=== PATIENT | male | born 1945 | race American Indian/Alaskan Native ===

== ENCOUNTER 2017-06-05 14:08 | Outpatient (CLI) | payer BC ==
--- NOTE | 2017-06-05 16:29 | RAD ---
PA AND LATERAL CHEST: History: Dyspnea. FINDINGS: The heart size is normal. The aorta is tortuous. The lungs are well expanded without focal areas of c onsolidation, pneumothoraxes, or pleural effusions. There are degenerative changes in the spine. IMPRESSION: No radiographic evidence of acute cardiopulmonary process. POS: [facility]
== END 2017-06-05 14:09 | disposition home or self-care (01) ==
LOC: RAD 14:08
PROVIDERS: ATTEND Internal Medicine Pulmonary Disease
DX: R06.02 Shortness of breath (principal)
CPT/HCPCS: 71046

== ENCOUNTER 2018-07-05 15:36 | Outpatient (CLI) | payer BC, OTHER ==
--- NOTE | 2018-07-05 15:50 | RAD ---
EXAM: Chest Two Views 07/05/2018 3:47 PM HISTORY: Dyspnea COMPARISON: June 05, 2017 FINDINGS: Heart: Normal in size and contour. Pulmonary vessels: Normal. Costophrenic angles: Clear. Lungs: No confluent pneumonia, overt edema, pleural effusion, or other acute process. Pneumothorax: None. 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 Additional findings: None. IMPRESSION: No significant acute intrathoracic disease.
== END 2018-07-05 15:37 | disposition home or self-care (01) ==
LOC: RAD 15:36
PROVIDERS: ATTEND Internal Medicine Pulmonary Disease
DX: R06.00 Dyspnea, unspecified (principal)
CPT/HCPCS: 71046